=== PATIENT | male | born 1985 | race Caucasian/White ===

== ENCOUNTER 2020-07-06 19:07 | Emergency (ER) | payer MEDICAID ==
[~2020-07-06] VITALS: Ht 170.2 cm; Wt 78.0 kg
[2020-07-06] MEDS ORDERED: KETOROLAC 30MG/ML VIAL IV STA (19:40)
[2020-07-06] MEDS ORDERED: MORPHINE SULFATE 4 MG/ML CPJ (NOT FOR IM USE) IV STA (19:40)
[2020-07-06 21:23] VITALS: BP 129/99
[2020-07-06] MEDS ORDERED: LIDOCAINE HCL 1% 20ML VIAL (Pyxis) INJ INFIL ONE (22:30)
[2020-07-06] MEDS ORDERED: LIDOCAINE HCL/PF 1% 10 MG/ML 5ML VIAL IJ ONE (23:15)
[2020-07-06] MEDS ORDERED: BACITRACIN ZINC OINT UDPKT TOP ONE (23:15)
[2020-07-07] MEDS ORDERED: ONDANSETRON HCL 4MG/2ML INJ IV ONE (00:30)
[2020-07-07] MEDS ORDERED: IBUP-2029 MT (01:42)
== END 2020-07-07 02:08 | disposition home or self-care (01) ==
LOC: ER 19:07
DX: S01.511A Laceration without foreign body of lip, initial encounter (principal); Y04.2XXA Assault by strike against or bumped into by another person, initial encounter; R03.0 Elevated blood-pressure reading, without diagnosis of hypertension; Y93.89 Activity, other specified; Y92.89 Other specified places as the place of occurrence of the external cause
CPT/HCPCS: 12011; 70450; 70486; 96374; 96375; 99285; J1885; J2270; J2405; J3490